=== PATIENT | female | born 1970 | race Two or more races ===

== ENCOUNTER 2025-01-31 12:02 | Emergency (ER) | payer OTHER ==
[~2025-01-31] VITALS: Ht 165.1 cm; Wt 71.2 kg
[2025-01-31 12:51] VITALS: BP 151/112; PULSE 100; RESP 17; TEMP 97.9; O2SAT 94
--- NOTE | 2025-01-31 13:02 | ED.PDOC ---
History of Present Illness HPI Comments A 54 YEAR OLD FEMALE PRESENTS TO THE ED WITH COMPLAINT OF NOSE PAIN. PATIENT STATES SHE HAS BEEN EXPERIENCING NOSEBLEEDS OFF AND ON FOR THE PAST 1 MONTH AND WENT TO [facility] ENT SPECIALIST WHERE SHE WAS GIVEN A SILVER NITRATE CAUTERIZATION TREATMENT. PATIENT REPORTS THAT SHE DOES NOT HAVE ANY BLEEDING AT THIS TIME, BUT NOTES THIS TREATMENT MADE HER NOSE PAIN WORSE, PROMPTING HER TO COME TO THE ED TODAY FOR EVALUATION. PATIENT DENIES FEVER, CHILLS, SHORTNESS OF BREATH, CHEST PAIN, ABDOMINAL PAIN, NAUSEA, VOMITING, HEADACHE, OR OTHER COMPLAINTS. NO OTHER SYMPTOMS OR MODIFYING FACTORS AT THIS TIME. PATIENT IS ALERT, ORIENTED X 4, AND HAS STEADY GAIT. Chief Complaint: Nose Bleed Time Seen by MD: 12:28 Reviewed Notes: Nurses Notes, Medications, Allergies Allergies: Coded Allergies: NO KNOWN ALLERGIES (Unverified , 01/31/25) Information Source: Patient Mode of Arrival: Ambulatory Severity: Moderate Timing: Days Duration: Days Prehospital treatment: None Medication Refill: For: Other (NOSE PAIN DUE TO NOSE BLEEDING ) Past Medical History PAST MEDICAL HISTORY: Denies Surgical History: Denies all surgeries INSURANCE ACTUARY History: No Pertinent INSURANCE ACTUARY History Family History Family History: Reviewed,noncontributory to illness Social History Smoker: Non-Smoker Alcohol: Denies ETOH Use Drugs: Denies Drug Use Lives In: Home Constitutional: denies: chills, diaphoresis, fatigue, fever, malaise, sweats, weakness, others EENTM: reports: nose bleeding, nose pain; denies: blurred vision, double vision, ear bleeding, ear discharge, ear drainage, ear pain, ear ringing, eye pain, eye redness, hearing loss, mouth pain, mouth swelling, nasal discharge, nose congestion, photophobia, tearing, throat pain, throat swelling, voice changes, others Respiratory: denies: cough, hemoptysis, orthopnea, SOB at rest, shortness of breath, SOB with excertion, stridor, wheezing, others Cardiovascular: denies: chest pain, dizzy spells, diaphoresis, Dyspnea on exertion, edema, irregular heart beat, left arm pain, lightheadedness, palpitations, PND, syncope, others Gastrointestinal: denies: abdomen distended, abdominal pain, blood streaked bowels, constipated, diarrhea, dysphagia, difficulty swallowing, hematemesis, melena, nausea, poor appetite, poor fluid intake, rectal bleeding, rectal pain, vomiting, others Genitourinary: denies: abnormal vagina bleeding, burning, dyspareunia, dysuria, flank pain, frequency, hematuria, incontinence, pain, , vagina discharge, urgency, others Neurological: denies: dizziness, fainting, headache, left sided numbness, left sided weakness, numbness, paresthesia, pre-existing deficit, right sided numbness, right sided weakness, seizure, speech problems, tingling, tremors, weakness, others Musculoskeletal: denies: back pain, gout, joint pain, joint swelling, muscle pain, muscle stiffness, neck pain, others Integumetry: denies: bruises, change in color, change in hair/nails, dryness, laceration, lesions, lumps, rash, wounds, others Allergic/Immunocompromised: denies: Difficulty Healing, Frequent Infections, Hives, Itching, others Hematologic/Lymphatic: denies: anemia, blood clots, easy bleeding, easy bruising, swollen glands, others Endocrine: denies: excessive hunger, excessive sweating, excessive thirst, excessive urination, flushing, intolerance to cold, intolerance to heat, unexplained weight gain, unexplained weight loss, others Psychiatric: denies: anxiety, bipolar disorder, depression, hopeless, panic disorder, schizophrenia, sleepless, suicidal, others All Other Systems: Reviewed and Negative Physical Exam General Appearance: No Apparent Distress, Normal HEENT: PERRL/EOMI, Pharynx Normal, TMs Normal, Other (NO NOSE BLEEDING, SILVER NITRATE INTACT IN BOTH NOSTRILS, NO ACTIVE NOSEBLEEDING OR BLOOD CLOTS, DRY NOSTRILS. ) Neck: Full Range of Motion, Non-Tender, Normal, Normal Inspection Respiratory: Chest Non-Tender, Lungs Clear, No Accessory Muscle Use, No Respiratory Distress, Normal Breath Sounds Cardiovascular: No Edema, No JVD, No Murmur, No Gallop, Normal Peripheral Pulses, Regular Rate/Rhythm Breast Exam: Deferred Gastrointestinal: No Organomegaly, Non Tender, No Pulsatile Mass, Normal Bowel Sounds, Soft Genitalia: Deferred Pelvic: Deferred Rectal: Deferred Extremities: No calf tenderness, Normal capillary refill, Normal inspection, Normal range of motion, Non-tender, No pedal edema Musculoskeletal : Apperance: Normal Neurologic: Alert, public transit trolley driver II-XII nml as Tested, No Motor Deficits, Normal Affect, Normal Mood, No Sensory Deficits Cerebellar Function: Normal Reflexes: Normal Skin: Dry, Normal Color, Warm Peripheral Pulses: 2+ carotid (R), 2+ carotid (L) Lymphatic: No Adenopathy Was a procedure done? Was a procedure done?: No Differential Dx Considerations may include: NOSE PAIN, HISTORY OF NOSEBLEEDS X-Ray, Labs, Meds, VS Vital Signs Date Time Temp Pulse Resp B/P (MAP) Pulse Ox O2 Delivery O2 Flow Rate FiO2 01/31/25 12:51 97.9 100 17 151/112 (125) 94 97.9 01/31/25 12:51 100 17 94 Room Air 01/31/25 12:29 97.9 100 17 151/112 (125) 94 97.9 X-Ray, Labs, Meds, VS Comment EXTERNAL MEDICAL RECORDS REVIEWED: [NONE] INDEPENDENT HISTORIANS: [NONE] SOCIAL DETERMINANTS OF HEALTH: [NONE] LABS ORDERED: CBC, BMP, PT INR, TSH REVIEWED AND INTERPRETED RESULTS: BLOOD TESTS WERE ORDERED FOR THE PATIENT, BUT PATIENT DECLINED AND STATED THAT SHE WILL JUST FOLLOW UP WITH HER ENT SPECIALIST AT [facility]. IMAGING ORDERED: NONE TREATMENTS ORDERED: NONE PROCEDURES PERFORMED: NONE CRITICAL CARE TIME: NONE I HAVE DISCUSSED THE PATIENT WITH THE ATTENDING PHYSICIAN DR. HIGH AND HE AGREES WITH THE PATIENT'S PLAN OF CARE. THE PATIENT DECLINED ANY LABS OR TREATMENT HERE IN THE ED AND STATED SHE WILL FOLLOW UP WITH HER ENT SPECIALIST AT [facility]. PATIENT ELOPED. Time of 1ST Reevaluation: 13:17 Reevaluation 1ST: Improved Patient Education/Counseling: Diagnosis, Treatment Family Education/Counseling: Diagnosis, Treatment Departure 1 Departure Time of Disposition: 13:18 Impression: Primary Impression: Nose pain Additional Impression: History of epistaxis Disposition: 07 LEFT AWOL/ELOPED Condition: Stable Critical Care Note Critical Care Time?: No Stability Stability form required: No I personally scribed for CHEPE MOORE ([email or web address]) on 01/31/25 at 13:02. Melissa venegas submitted by Peewee Reza ([email or web address]). CHEPE MOORE January 31, 2025 13:02
== END 2025-01-31 13:18 | disposition left against medical advice (07) ==
LOC: ER 12:02
DX: J34.89 Other specified disorders of nose and nasal sinuses (principal); R04.0 Epistaxis

== ENCOUNTER 2025-08-24 11:52 | Emergency (ER) | payer OTHER ==
[~2025-08-24] VITALS: Ht 165.1 cm; Wt 66.1 kg
[2025-08-24 11:54] VITALS: BP 151/99; PULSE 124; RESP 16; TEMP 98.2; O2SAT 95
== END 2025-08-24 13:10 | disposition left against medical advice (07) ==
LOC: ER 11:52
DX: S60.872A Other superficial bite of left wrist, initial encounter (principal); S60.871A Other superficial bite of right wrist, initial encounter; Z53.21 Procedure and treatment not carried out due to patient leaving prior to being seen by health care provider; W54.0XXA Bitten by dog, initial encounter; Y93.89 Activity, other specified; Y92.89 Other specified places as the place of occurrence of the external cause; Y99.8 Other external cause status